=== PATIENT | female | born 1985 | race Caucasian/White ===

== ENCOUNTER 2022-10-26 23:08 | Emergency (ER) | payer OTHER ==
[2022-10-26 23:15] VITALS: BP 136/85; PULSE 71; O2SAT 100
[2022-10-26] MEDS ORDERED: TORAdol 30 mg Injection IM ONE (23:24)
--- NOTE | 2022-10-26 23:46 | ERPHSYRPT ---
- History of Present Illness Time Seen by Provider: 10/26/22 23:13 Source: patient Exam Limitations: no limitations Patient Subjective Stated Complaint: I shut my thumb in the car door this morning Triage Nursing Assessment: pt ambulated into ER without diff, pt alert and oriented x4, pleasant and cooperative. Pt c/o rt thumb pain. Pt shut thumb in car door this morning around 7am when getting off work. Rt thumb nail is bruised, pt is limited on moving thumb and is in pain with it. Physician History: 36-year-old right-handed dominant female presented in the ER with chief complaint of injury left thumb/nail while shutting the car door this morning. She took Tylenol which helped this morning and is causing more pain this evening again and no significant relief with Tylenol prior to arrival. She has a bruise /hematoma at the base of nail. Limited range of motion at interphalangeal joint. Occurred: this morning Method of Injury: direct blow Quality: constant Severity of Pain-Max: moderate Severity of Pain-Current: moderate Extremities Pain Location: thumb: right Modifying Factors: Improves With: immobilization, pain medication. Worsens With: movement Associated Symptoms: none Allergies/Adverse Reactions: No Known Drug Allergies Allergy (Verified 10/26/22 23:20) Home Medications: Vilazodone HCl 20 mg PO DAILY 10/26/22 [History] Hx Tetanus, Diphtheria Vaccination/Date Given: Yes Hx Influenza Vaccination/Date Given: No Hx Pneumococcal Vaccination/Date Given: No Travel Risk - International Travel Have you traveled outside of the country in past 3 weeks: No - Coronavirus Screening Are you exhibiting any of the following symptoms?: No Close contact with a COVID-19 positive Pt in past 14-21 Days: No - Vaccine Status Have you recieved a Covid-19 vaccination: No - Review of Systems Constitutional: No Symptoms Eyes: No Symptoms Respiratory: No Symptoms Cardiac: No Symptoms Musculoskeletal: Injury Skin: No Symptoms Neurological: No Symptoms Endocrine: No Symptoms Hematologic/Lymphatic: No Symptoms - Past Medical History Pertinent Past Medical History: Yes Neurological History: No Pertinent History ENT History: No Pertinent History Cardiac History: No Pertinent History Respiratory History: No Pertinent History Endocrine Medical History: No Pertinent History GI Medical History: Gallbladder Disease, Other History: No Pertinent History Female Reproductive Disorders: No Pertinent History Other Medical History: BOWEL OBSTRUCTIONS - Past Surgical History Past Surgical History: Yes Neuro Surgical History: No Pertinent History Cardiac: No Pertinent History Respiratory: No Pertinent History Gastrointestinal: Bowel Surgery, Cholecystectomy Genitourinary: No Pertinent History Musculoskeletal: No Pertinent History Female Surgical History: No Pertinent History - Social History Smoking Status: Current every day smoker How long have you smoked: 15 yrs Exposure to second hand smoke: Yes Drug Use: none Patient Lives Alone: No - Female History Hx Now: No - Nursing Vital Signs Nursing Vital Signs: Initial Vital Signs Temperature 98.1 F 10/26/22 23:14 Pulse Rate 71 10/26/22 23:14 Respiratory Rate 18 10/26/22 23:14 Blood Pressure 136/85 10/26/22 23:14 O2 Sat by Pulse Oximetry 100 10/26/22 23:14 Pain Scale Pain Intensity 7 - Physical Exam General Appearance: no apparent distress, alert Eyes, Ears, Nose, Throat Exam: normal ENT inspection Neck Exam: normal inspection, supple, full range of motion Cardiovascular/Respiratory Exam: normal breath sounds, regular rate/rhythm Wrist Exam: normal inspection, non-tender, no evidence of injury, normal ROM Hand Exam: limited ROM (Right first digit interphalangeal joint. Hematoma underneath base of nail. Intact sensation at the distal end and cap refill less than 3 seconds.), nail injury Neuro/Tendon Exam: normal sensation, normal tendon functions Mental Status Exam: alert, oriented x 3, cooperative Skin Exam: normal color SpO2 Interpretation: normal SpO2: 100 O2 Delivery: Room Air Ordered Tests: Active Orders 24 hr Category Date Time Status FINGER(S) Stat Exams 10/26/22 23:24 Ordered Medication Summary Discontinued Medications Generic Name Dose Route Start Last Admin Trade Name Diana PRN Reason Stop Dose Admin Ketorolac Tromethamine 30 mg 10/26/22 23:24 Ketorolac Tromethamine 30 Mg/Ml Inj IM 10/26/22 23:25 STAT ONE - Progress Progress: improved, re-examined Progress Note: 10/26/22 23:43 36-year-old right-handed dominant is evaluated for right thumb injury and some hematoma underneath the nail which happened this morning while she was shutting her car door and thumb caught in. She has a limited range of motion at interphalangeal joint, distal neurovascular intact. Obtain x-rays which is negative for any acute fracture dislocation reviewed by me, official report is pending. Given Toradol for symptomatic relief. I believe patient has bruise with hematoma and because of pressure effect causing pain, offered drainage of hematoma which she refused and would like to try Tylenol ibuprofen at home and outpatient follow-up. She is placed in aluminum splint, recommended ice, pain medications and outpatient follow-up with primary care and orthopedics. Discussed signs symptoms of worsening needing return to ER which she seems understanding. Counseled pt/family regarding: diagnosis, need for follow-up, rad results Medical Desision Making - Discussion of managment Reviewed:: Test results Agreed on:: Treatment plan, need for follow-up - Risk of complications Low Risk: Low risk of morbidity from additional dx testing or treatment - Departure Departure Disposition: Home Clinical Impression: Contusion of thumb (nail) Qualifiers: Encounter type: initial encounter Laterality: right Qualified Code(s): S60.111A - Contusion of right thumb with damage to nail, initial encounter Condition: Stable Critical Care Time: No Referrals: DOCTOR,NO FAMILY [Primary Care Provider] - Follow up/PCP as directed ORTHO - SRINIVASA FRANCISCO NP [NON-STAFF PHY W/O PRIVILEGES] - [facility]-Ortho M-[id number] Instructions: Finger Fracture (DC) Additional Instructions: Take Tylenol/ibuprofen as needed, follow-up with primary care/orthopedics for reevaluation. Intermittent ice application. Avoid exertional work with right hand/thumb. Return to ER for increasing swelling pain etc. Prescriptions: Ibuprofen 600 mg PO Q6HPRN PRN 10 Days #20 tablet PRN Reason: Pain
[2022-10-26] MEDS ORDERED: TORAdol 30 mg Injection ONE (23:48)
--- NOTE | 2022-10-27 08:39 | XRAY ---
Indication: Pain following crush injury. Comparison: None 3 view left thumb obtained. No bony, articular, or soft tissue abnormalities.
== END 2022-10-27 00:11 | disposition home or self-care (01) ==
LOC: ED 23:08
DX: S60.111A Contusion of right thumb with damage to nail, initial encounter (principal); W23.0XXA Caught, crushed, jammed, or pinched between moving objects, initial encounter; Z79.899 Other long term (current) drug therapy; Z28.310 Unvaccinated for COVID-19; Z72.0 Tobacco use
CPT/HCPCS: 73140; 99283; J1885